=== PATIENT | male | born 1960 | race African-American/Black ===

== ENCOUNTER 2018-10-21 11:19 | Emergency (ER) | payer OTHER ==
[2018-10-21 11:27] VITALS: BMI 26.6
--- NOTE | 2018-10-21 11:56 | PDOC ---
History of Present Illness - General Chief Complaint: Chest Pain Stated Complaint: CHEST PAIN Time Seen by Provider: 10/21/18 11:32 History Source: Patient Exam Limitations: Clinical Condition - History of Present Illness Initial Comments: 10/21/18 11:49 Patient with h/o HTN on coreg, Norvasc, HCTZ and diabetes not on meds present with complains of mid-sternal chest pains since last night which is worse with deep breathing. Patient report he was seen by hospitality house supervisor on Thursday 4 days ago with abnormal EKG and angiogram done 3 days ago which was normal. Pt is visiting from [place] and wants to make sure he is okay before he travels back. Patient on daily 81mg ASA . Denies radiation of pain, numbness or tingling sensation, SOB, nausea, vomiting or sweats. Denies dizziness or lightheadedness. Denies abd pains Timing/Duration: 24 hours Past History - Past Medical History Allergies/Adverse Reactions: Allergies Allergy/AdvReac Type Severity Reaction Status Date / Time No Known Allergies Allergy Verified 10/21/18 11:23 Home Medications: Ambulatory Orders Amlodipine Besylate 10 mg PO DAILY 10/21/18 Aspirin 81 mg PO DAILY 10/21/18 Carvedilol [Coreg -] 25 mg PO BID 10/21/18 Hydrochlorothiazide 12.5 mg PO DAILY 10/21/18 Naproxen 500 mg PO BID PRN #20 tablet 10/21/18 Ramipril 10 mg PO DAILY 10/21/18 COPD: No CHF: No Diabetes: No Other medical history: angiogram - Surgical History Cholecystectomy: No Lung Surgery: No - Immunization History Immunization Up to Date: No - Suicide/Smoking/Psychosocial Hx Smoking History: Current every day smoker Have you smoked in the past 12 months: Yes Number of Cigarettes Smoked Daily: 6 Information on smoking cessation initiated: No Hx Alcohol Use: No Drug/Substance Use Hx: No Review of Systems - Review of Systems Able to Perform ROS?: Yes Is the patient limited Wolof proficient: No Constitutional: No: Chills, Fever, Weakness HEENTM: No: Symptoms Reported, See HPI, Eye Pain, Blurred Vision, Tearing, Recent change in vision, Double Vision, Cataracts, Ear Pain, Ocular Prothesis, Ear Discharge, Nose Pain, Nose Congestion, Tinnitus, Nose Bleeding, Hearing Loss , Throat Pain, Throat Swelling, Mouth Pain, Dental Problems, Difficulty Swallowing, Mouth Swelling, Other Respiratory: Yes: Symptoms reported, See HPI. No: Cough, Orthopnea, Shortness of Breath, SOB with Exertion, SOB at Rest, Stridor, Wheezing, Productive cough, Hemoptysis, Other Cardiac (ROS): Yes: Symptoms Reported, See HPI, Chest Pain (mid-sternal). No: Edema, Irregular Heart Rate, Lightheadedness, Palpitations, Syncope, Chest Tightness, Other ABD/GI: Yes: See HPI. No: Nausea, Vomiting, Abdominal cramping Neurological: No: Headache, Numbness, Paresthesia, Tremors, Weakness All Other Systems: Reviewed and Negative *Physical Exam - Vital Signs Last Vital Signs Temp Pulse Resp BP Pulse Ox 98.5 F 82 18 138/83 99 10/21/18 11:24 10/21/18 11:24 10/21/18 11:24 10/21/18 11:24 10/21/18 11:24 - Physical Exam General Appearance: Yes: Nourished, Appropriately Dressed. No: Apparent Distress HEENT: positive: LORENA, Normal ENT Inspection Neck: positive: Supple Respiratory/Chest: positive: Chest Tender (mild mid-sternal chest tenderness), Lungs Clear, Normal Breath Sounds. negative: Respiratory Distress, Accessory Muscle Use Cardiovascular: positive: Regular Rhythm, Regular Rate, S1, S2 (normal). negative: JVD, Murmur, Gallop/S3 Vascular Pulses: Carotid (R): 4+, Carotid (L): 4+ Gastrointestinal/Abdominal: positive: Flat, Soft. negative: Tender, Organomegaly, Pulsatile Mass Musculoskeletal: positive: Normal Inspection Extremity: positive: Normal Capillary Refill, Normal Inspection, Normal Range of Motion. 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 Patient report he was seen by hospitality house supervisor on Thursday 4 days ago with abnormal EKG and angiogram done 3 days ago which was normal. Pt is visiting from [place] and wants to make sure he is okay before he travels back. Patient on daily 81mg ASA . Denies radiation of pain, numbness or tingling sensation, SOB, nausea, vomiting or sweats. Denies dizziness or lightheadedness. Denies abd pains. Clinical exam significant for mild mid-sternal tenderness otherwise unremarkable exam with pt in NAD. CBC, CMP, Cardiac profile and d-dimer labs ordered. CXR ordered. EKG shows NSR. treat based on labs and imaging results 10/21/18 17:05 CBC CMP labs unremarkable. d-dimer last was elevated and CT with PE protocol was negative for PE. CXR shows no acute pathology. Patient report improved pain with Tylenol. Cardiac profile done twice 3 hrs apart was negative.Patient symptoms likely costochondritis and will b discharged on naproxen prn for pain and cardiology follow-up *DC/Admit/Observation/Transfer Diagnosis at time of Disposition: Costochondral chest pain - Discharge Dispostion Disposition: HOME Condition at time of disposition: Stable Decision to Admit order: No - Prescriptions Prescriptions: Naproxen 500 mg PO BID PRN #20 tablet PRN Reason: pain - Referrals - Patient Instructions Printed Discharge Instructions: DI for Chest Pain, DI for Atypical Chest Pain, Costochondritis Additional Instructions: Your lab, CAT scan and x-rays was normal. Your symptoms is likely from musculoskeletal pain. Take prescribed medication as needed for pain. Follow-up with your hospitality house supervisor as soon as possible - Post Discharge Activity
--- NOTE | 2018-10-21 12:01 | PDOC ---
*Physical Exam - Vital Signs Last Vital Signs Temp Pulse Resp BP Pulse Ox 98.5 F 82 18 138/83 99 10/21/18 11:24 10/21/18 11:24 10/21/18 11:24 10/21/18 11:24 10/21/18 11:24 Heart Score/ECG Review #1 ECG reviewed & interpreted by me at: 11:25 10/21/18 12:01 NSR 80, no std/judith, normal axis, normal intervals, QTC 426 msec ED Treatment Course - LABORATORY CBC & Chemistry Diagram: 10/21/18 12:00 10/21/18 12:00 Medical Decision Making - Medical Decision Making 10/21/18 12:01 Pt seen by the Advanced Practice Provider under my direct supervision Ancillary studies reviewed I agree with plan as outlined by the Advanced Practice Provider RICH Husain *DC/Admit/Observation/Transfer Diagnosis at time of Disposition: Costochondral chest pain - Discharge Dispostion Disposition: HOME Condition at time of disposition: Stable - Prescriptions Prescriptions: Naproxen 500 mg PO BID PRN #20 tablet PRN Reason: pain - Referrals - Patient Instructions Printed Discharge Instructions: Costochondritis, DI for Atypical Chest Pain, DI for Chest Pain Additional Instructions: Your lab, CAT scan and x-rays was normal. Your symptoms is likely from musculoskeletal pain. Take prescribed medication as needed for pain. Follow-up with your senior search marketing analyst as soon as possible - Post Discharge Activity
[2018-10-21 12:09] LABS: BASO % 0.5 % (0-2.0); EOS % 0.2 % (0-4.5); HEMATOCRIT 40.2 % (35.4-49); HEMOGLOBIN 14.1 GM/dL (11.7-16.9); MCH 29.2 pg (25.7-33.7); MEAN CELL VOLUME 83.4 fl (80-96); MEAN PLT VOLUME 7.6 fl (7.5-11.1); MONO % 10.6 % (3.8-10.2); NEUT % 75.7 % (42.8-82.8); PLATELET COUNT 236 K/MM3 (134-434); RBC 4.82 M/mm3 (4.00-5.60); RDW 13.7 % (11.9-15.9); WHITE BLOOD COUNT 10.5 K/mm3 (4.0-10.0)
[2018-10-21 12:44] LABS: ALBUMIN 3.8 g/dl (3.4-5.0); ALK PHOS 93 U/L (45-117); ANION GAP 3 MMOL/L (8-16); BILIRUBIN,TOTAL 1.4 mg/dL (0.2-1); BLOOD UREA NITROGEN 13 mg/dL (7-18); CHLORIDE 100 mmol/L (98-107); CO2 32 mmol/L (21-32); CREATININE 1.1 mg/dL (0.55-1.3); GLUCOSE,RANDOM 134 mg/dL (74-106); POTASSIUM 3.9 mmol/L (3.5-5.1); SGOT/AST 10 U/L (15-37); SGPT/ALT 15 U/L (13-61); SODIUM 135 mmol/L (136-145); TOT PROT 7.5 g/dl (6.4-8.2)
[2018-10-21] MEDS ORDERED: MAG HYDROX/AL HYDROX/SIMETH -MYLANTA- ORAL SUSPENSION PO ONE (13:08)
[2018-10-21] MEDS ORDERED: FAMOTIDINE 20 MG/50 ML IVPB 20 MG/50 ML MG IVPB ONE ×2 (13:09→13:17)
[2018-10-21] MEDS ORDERED: MAG HYDROX/AL HYDROX/SIMETH 30 ML UNIT-DOSE CUP ONE (13:17)
[2018-10-21] MEDS ORDERED: ACETAMINOPHEN 1000 MG/100 ML VIAL (NON FORMULARY) IVPB ONE (14:54)
[2018-10-21] MEDS ORDERED: ACETAMINOPHEN INJECTION 100 ML IVPB ONE (15:07)
--- NOTE | 2018-10-21 15:26 | EKG ---
Test Reason : Blood Pressure : / mmHG Vent. Rate : 080 BPM Atrial Rate : 080 BPM P-R Int : 164 ms QRS Dur : 098 ms QT Int : 370 ms P-R-T Axes : 053 019 023 degrees QTc Int : 426 ms POOR DATA QUALITY, INTERPRETATION MAY BE ADVERSELY AFFECTED NORMAL SINUS RHYTHM NORMAL ECG NO PREVIOUS ECGS AVAILABLE Confirmed by MARY JO RIVAS MD ([id number]) on 10/21/2018 3:25:50 PM Referred By: Confirmed By:MARY JO RIVAS MD
[2018-10-21 16:00] VITALS: TEMP 98.4
[2018-10-21] MEDS ORDERED: KETOROLAC TROMETHAMINE 30 MG/1 ML VIAL IVPUSH ONE (17:16)
[2018-10-21] MEDS ORDERED: KETOROLAC TROMETHAMINE 30 MG/1 ML VIAL ONE (17:23)
[2018-10-21 18:07] VITALS: BP 148/97; PULSE 75
== END 2018-10-21 18:12 | disposition home or self-care (01) ==
LOC: JER 11:19
PROC: 3E033GC Introduction of Other Therapeutic Substance into Peripheral Vein, Percutaneous Approach (ICD-10-PCS; principal; 2018-10-21)
PROC: 3E033NZ Introduction of Analgesics, Hypnotics, Sedatives into Peripheral Vein, Percutaneous Approach (ICD-10-PCS; 2018-10-21)
PROC: 3E0333Z Introduction of Anti-inflammatory into Peripheral Vein, Percutaneous Approach (ICD-10-PCS; 2018-10-21)
DX: M94.0 Chondrocostal junction syndrome [Tietze] (principal); I10 Essential (primary) hypertension; E11.9 Type 2 diabetes mellitus without complications
CPT/HCPCS: 36415; 71046-TC-FY; 71275-TC; 80053; 82550; 84484; 85025; 85379; 93005; 93010; 99284-25; J0131